=== PATIENT | male | born 1990 | race Caucasian/White ===

== ENCOUNTER 2016-11-14 16:26 | Emergency (ER) | payer BC, OTHER ==
[~2016-11-14] VITALS: Ht 180.3 cm; Wt 63.1 kg
[~2016-11-14 16:26] MED LIST: ALPR0.5T PO; ESCI20TA PO
[2016-11-14 16:29] VITALS: Ht 180.3 cm; Wt 63.1 kg
--- NOTE | 2016-11-14 16:32 | NUR ---
PROVIDER DR ANNE IN TO SEE PATIENT.
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
--- OUTSIDE RECORDS SUMMARY | 2016-11-14 16:35 | XMS REPORT ---
Author Author Mildred Hernandez Organization [employer] Address Unknown Phone Unavailable Care Team Providers Care Prime Broker Name Role Phone Mildred Hernandez CP Unavailable Allergies, Adverse Reactions, Alerts Substance Reaction Event Type N.K.D.A. 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 Problem Anxiety disorder in conditions classified elsewhere 293.84 Active Problem Unspecified viral hepatitis C without hepatic coma 070.70 Active Problem Nondependent cannabis abuse, unspecified 305.20 Active Assessment Depressive disorder, not elsewhere classified 311 Active Problem Depressive disorder, not elsewhere classified 311 Active Problem Nondependent alcohol abuse, unspecified drunkenness 305.00 Active Medications Medication Code System Code Instructions Start Date End Date Status Dosage Mirtazapine [facility] [address]-67 30 MG Orally Once a day February 09, 2015 1/2 tablet by mouth at bedtime for one week, then 1 tablet before bedtime in the evening Procedures Procedure Coding System Code Date OFFICE VISIT, EST-MOD. COMPLEXITY (25 MIN) CPT-4 67864 February 09, 2015 Vital Signs Date/Time: February 09, 2015 Height 69 in Weight 151.4 lbs Temperature 97.8 F Blood Pressure Diastolic 72 mm Hg Blood Pressure Systolic 116 mm Hg Cardiac Monitoring Heart Rate 68 /min BMI 22.36 Index Respiratory Rate 16 /min Results No Known Results Summary Purpose [employer] Submission
--- OUTSIDE RECORDS SUMMARY | 2016-11-14 16:35 | XMS REPORT ---
Author Author Sharon Mancini [facility] [employer] Address Unknown Phone Unavailable Care Team Providers Care Water Proofer Name Role Phone Sharon Mancini CP Unavailable Allergies, Adverse Reactions, Alerts Substance Reaction Event Type N.K.D.A. Info Not Available Non Drug Allergy Problems Problem Type Condition Code Onset Dates Condition Status Assessment Anxiety disorder in conditions classified elsewhere 293.84 Active Assessment Unspecified viral hepatitis C without hepatic coma 070.70 Active Problem Amphetamine and other psychostimulant dependence, [...] Instructions Start Date End Date Status Dosage Zyprexa [facility] [address]-00 5 MG Orally Once a day at bedtime January 19, 2015 1 tablet Seroquel XR [facility] [address]-37 150 MG Orally Once a day Oct 29, 2014 1 tablet in the evening Procedures Procedure Coding System Code Date OFFICE VISIT, EST-LOW COMPLEXITY (15 MIN.) CPT-4 69892 January 19, 2015 Vital Signs Date/Time: January 19, 2015 Height 69 in Weight 161 lbs Temperature 98.7 F Blood Pressure Diastolic 82 mm Hg Blood Pressure Systolic 146 mm Hg Cardiac Monitoring Heart Rate 74 /min BMI 23.77 Index Respiratory Rate 16 /min Results No Known Results Summary Purpose [employer] Submission
--- OUTSIDE RECORDS SUMMARY | 2016-11-14 16:35 | XMS REPORT ---
Author Author Sharon Mancini [facility] [employer] Address Unknown Phone Unavailable Care Team Providers Care Bulk Pallet Builder Name Role Phone Sharon Mancini CP Unavailable Allergies No Known Allergies Problems Problem Type Condition Code Onset Dates [...] Start Date End Date Status Dosage Mirtazapine [facility] [address]-36 30 MG Orally Once a day February 09, 2015 1/2 tablet by mouth at bedtime for one week, then 1 tablet before bedtime in the evening Procedures Procedure Coding System Code Date COMPREHENSIVE METABOLIC PANEL CPT-4 33381 February 09, 2015 HEP C RNA QUANT CPT-4 95367 February 09, 2015 COMPLETE CBC W/AUTO DIFF WBC CPT-4 30065 February 09, 2015 TSH CPT-4 51415 February 09, 2015 LIPID PANEL CPT-4 01471 February 09, 2015 Results No Known Results Summary Purpose [employer] Submission
--- OUTSIDE RECORDS SUMMARY | 2016-11-14 16:35 | XMS REPORT | Continuity of Care Document ---
Author Author [facility] Organization [facility] Address Unknown Phone Unavailable Support Name Relationship Address Phone JACQUELINE VALLECILLO MD Caregiver [address] [place] [address] [place] [phone] COLE GONZALEZ Next Of Kin [address] [place] [address] Unavailable Insurance Providers Payer Name Policy Number Subscriber Name Relationship Workers Compensation Angelica Loyd 19 Self Problems Medical Problems Problem Onset Date Status Laceration of finger Unknown Active Laceration of finger Unknown Active Medications Medication Dose Route Sig Days/Qty Instructions Order Date Discontinued Date Status Alprazolam 0.5 Mg PO PRN ANXIETY 07/24/14 Active Escitalopram Oxalate 1 Tab PO DAILY 07/24/14 Active Social History Social History Problem Response Recorded Date/Time Smoking Status Former smoker 07/24/2014 11:13pm Hx Alcohol Use Y OCCASIONALLY 07/24/2014 11:13pm Hospital Discharge Instructions No hospital discharge instructions. Plan of Care No plan of care. Functional Status Query Response Date Recorded Physical Hygiene Self July 24, 2014 11:13pm Disabilities None July 24, 2014 11:13pm Devices Used Glasses July 24, 2014 11:13pm Dressing Self July 24, 2014 11:13pm Ambulation Self July 24, 2014 11:13pm Diet Self July 24, 2014 11:13pm Mental Status Alert Oriented July 25, 2014 12:11am Disabilities None July 24, 2014 11:13pm Devices Used Glasses July 24, 2014 11:13pm Physical Hygiene Self July 24, 2014 11:13pm Dressing Self July 24, 2014 11:13pm Ambulation Self July 24, 2014 11:13pm Diet Self July 24, 2014 11:13pm Allergies, Adverse Reactions, Alerts Allergen Type Severity Reaction Status Last Updated No Known Allergies Active 07/24/14 Immunizations Name Given Type Hx Tetanus, Diptheria, Pertussis 2012 Historical Hx Tetanus, Diptheria, Pertussis 2012 Historical Vital Signs Acute Vital Signs Vital Response Date/Time Temperature (Fahrenheit) 98.7 deg F (96.8 - 99.1) Temperature (Calculated Celsius) 37.71003 degrees C (36.0 - 37.3) Pulse Rate (adult) 88 bpm (60 - 100) Respiratory Rate 12 breaths/min (10 - 20) O2 Sat by Pulse Oximetry 97 % (90 - 100) Blood Pressure 121/56 mm Hg Height 5 ft 11 in Weight 154 lb Body Mass Index 21.0 kg/m^2 Results No known relevant diagnostic tests, laboratory data and/or discharge summary. Procedures No known history of procedures. Encounters Encounter Location Date/Time Departed Emergency Room [facility] 07/24/14 11:00pm Recent Diagnosis
[2016-11-14] MEDS ORDERED: no routine meds (16:38)
[2016-11-14] MEDS ORDERED: TRAMADOL 50 MG TABLET PO ONE (16:45)
--- NOTE | 2016-11-14 16:47 | NUR ---
XRAY BEING DONE IN ROOM AT THIS TIME.
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
--- OUTSIDE RECORDS SUMMARY | 2016-11-14 17:12 | XMS REPORT | Continuity of Care Document ---
Author Author [facility] Organization [facility] Address Unknown Phone Unavailable Support Name Relationship Address Phone JACQUELINE VALLECILLO MD Caregiver [address] [place] [address] [place] [phone] COLE GONZALEZ Next Of Kin [address] [place] [address] Unavailable Insurance Providers Payer Name Policy Number [...] F (96.8 - 99.1) Temperature (Calculated Celsius) 37.92858 degrees C (36.0 - 37.3) Pulse Rate [...] Encounters Encounter Location Date/Time Departed Emergency Room [facility] 07/24/14 11:00pm Recent Diagnosis
--- NOTE | 2016-11-14 17:19 | NUR ---
PROVIDER DR ANNE IN TO SEE PATIENT.
[2016-11-14] MEDS ORDERED: CEPH-583 PO (17:23)
[2016-11-14] MEDS ORDERED: TRAM50TA4 PO (17:23)
[2016-11-14 17:29] VITALS: BP 129/73; PULSE 84; RESP 16; TEMP 98.2; O2SAT 98
== END 2016-11-14 17:29 | disposition home or self-care (01) ==
LOC: ED 16:26
DX: S92.535A Nondisplaced fracture of distal phalanx of left lesser toe(s), initial encounter for closed fracture (principal); S91.205A Unspecified open wound of left lesser toe(s) with damage to nail, initial encounter; V09.09XA Pedestrian injured in nontraffic accident involving other motor vehicles, initial encounter; Y93.89 Activity, other specified; Y92.481 Parking lot as the place of occurrence of the external cause; Y99.8 Other external cause status